=== PATIENT | male | born 1995 | race Native Hawaiian/Other Pacific Islander ===

== ENCOUNTER 2018-11-19 02:19 | Emergency (ER) | payer SELFPAY ==
[2018-11-19 03:10] VITALS: BP 140/88
--- NOTE | 2018-11-19 03:47 | XRay Report ---
CHEST 2 VIEWS INDICATION: chestpain. Generalized chest pain and shortness of breath for the past 2 days COMPARISON: None FINDINGS: Support devices: None. Heart: Within normal limits. Lungs/pleura: No acute air space or interstitial disease. No pneumothorax. Additional findings: None. IMPRESSION: 1. No acute findings. Signer Name: Edwin Mast MD Signed: 11/19/2018 3:42 AM Workstation Name: [id number]
[2018-11-19] MEDS ORDERED: TYLENOL PO ONE (06:02)
[2018-11-19] MEDS ORDERED: ASPIRIN PO ONE (06:02)
--- NOTE | 2018-11-19 06:38 | Emergency Department Report ---
ED General Adult HPI - General Chief complaint: Chest Pain Stated complaint: CHEST PAIN Time Seen by Provider: 11/19/18 05:55 Source: patient Mode of arrival: Ambulatory Limitations: No Limitations - History of Present Illness Initial comments: Patient is a 22-year-old male with no past medical history, and nonsmoker of tobacco products who presents with a ED with complaint of acute onset persistent left-sided chest wall pain for the last 2 hours after slipping and laying in the prone position overnight. Patient states that her pain is per sistent and worse with inhalation or palpation of the chest wall. Patient denies diaphoresis, dizziness, nausea, vomiting, shortness of breath, headache, abdominal pain, numbness and tingling of left arm or neck pain and vision changes or palpitation. MD Complaint: CHEST WALL PAIN -: Sudden, hour(s) (2) Location: chest Radiation: non-radiation Severity scale (0 -10): 4 Quality: aching, dull Consistency: constant Improves with: none Worsens with: other (INHALATION) Associated Symptoms: denies other symptoms, chest pain. denies: confusion, coug h, diaphoresis, fever/chills, headaches, loss of appetite, malaise, nausea/vomiting, rash, shortness of breath, syncope, weakness Treatments Prior to Arrival: none - Related Data Previous Rx's Medication Instructions Recorded Last Taken Type Acetaminophen/Codeine [Tylenol 1 tab PO Q6H PRN #12 tab 03/25/18 Unknown Rx /Codeine # 3 tab] Clindamycin [Clindamycin CAP] 300 mg PO Q6H #28 capsule 03/25/18 Unknown Rx Ibuprofen [Motrin] 600 mg PO Q8H PRN #20 tablet 03/25/18 Unknown Rx metroNIDAZOLE [Flagyl] 500 mg PO Q12HR #14 tab 03/25/18 Unknown Rx Allergies Allergy/AdvReac Type Severity Reaction Status Date / Time No Known Allergies Allergy Verified 03/27/18 13:47 ED Review of Systems ROS: Stated complaint: CHEST PAIN Other details as noted in HPI Constitutional: denies: chills, fever Eyes: denies: eye pain, eye discharge, vision change ENT: denies: ear pain, throat pain Respiratory: denies: cough, shortness of breath, wheezing Cardiovascular: chest pain (LEFT-SIDED). denies: palpitations Endocrine: no symptoms reported Gastrointestinal: denies: abdominal pain, nausea, diarrhea Genitourinary: denies: urgency, dysuria Musculoskeletal: arthralgia. denies: back pain, joint swelling Skin: denies: rash, lesions Neurological: denies: headache, weakness, paresthesias Psychiatric: denies: anxiety, depression Hematological/Lymphatic: denies: easy bleeding, easy bruising ED Past Medical Hx - Past Medical History Previous Medical History?: Yes Hx Asthma: Yes Additional medical history: Obesity - Surgical History Past Surgical History?: No - Social History Smoking Status: Never Smoker Substance Use Type: None - Medications Home Medications: Home Medications Medication Instructions Recorded Confirmed Last Taken Type Acetaminophen/Codeine [Tylenol 1 tab PO Q6H PRN #12 tab 03/25/18 Unknown Rx /Codeine # 3 tab] Clindamycin [Clindamycin CAP] 300 mg PO Q6H #28 capsule 03/25/18 Unknown Rx Ibuprofen [Motrin] 600 mg PO Q8H PRN #20 tablet 03/25/18 Unknown Rx metroNIDAZOLE [Flagyl] 500 mg PO Q12HR #14 tab 03/25/18 Unknown Rx ED Physical Exam - General Limitations: No Limitations General appearance: alert, in no apparent distress - Head Head exam: Present: atraumatic, normocephalic - Eye Eye exam: Present: normal appearance, PERRL, EOMI Pupils: Present: normal accommodation - ENT ENT exam: Present: normal exam, normal orophraynx, mucous membranes moist, TM's normal bilaterally, normal external ear exam - Neck Neck exam: Present: normal inspection, full ROM. Absent: tenderness, lymphadenopathy - Respiratory Respiratory exam: Present: normal lung sounds bilaterally, chest wall tenderness (Palpable left chest wall pain). Absent: respiratory distress, wheezes, rales, rhonchi, accessory muscle use, decreased breath sounds, prolonged expiratory - Cardiovascular Cardiovascular Exam: Present: regular rate, normal rhythm, normal heart sounds. Absent: systolic murmur, diastolic murmur, rubs, gallop - GI/Abdominal GI/Abdominal exam: Present: soft, normal bowel sounds. Absent: tenderness, guarding, rebound, hyperactive bowel sounds, hypoactive bowel sounds, organomegaly - Rectal Rectal exam: Present: deferred - Extremities Exam Extremities exam: Present: normal inspection, full ROM, normal capillary refill - Back Exam Back exam: Present: normal inspection, full ROM. Absent: tenderness, CVA tenderness (R), CVA tenderness (L), paraspinal tenderness - Neurological Exam Neurological exam: Present: alert, oriented X3, CN II-XII intact, normal gait, reflexes normal - Psychiatric Psychiatric exam: Present: normal affect, normal mood - Skin Skin exam: Present: warm, dry, intact, normal color. Absent: rash ED Course Vital Signs 11/19/18 02:59 Temperature 98.4 F Pulse Rate 70 Respiratory 18 Rate Blood Pressure 140/88 O2 Sat by Pulse 100 Oximetry - Reevaluation(s) Reevaluation #1: 11/19/18 06:37 This is a 22-year-old male with no past medical history presented to the ED with left-sided chest wall pain after slipping on laying in a prone position. In the ED, the patient is alert and oriented 3 and is not in distress with normal vital signs. EKG shows normal sinus rhythm with a ventricular rate of 61 beats per minutes, and no ST or T wave mother to speak. Chest x-ray shows no acute pulmonary abnormalities. Patient has no risk factors for cardiac pathology. Labs were drawn including troponin. Pain medication was ordered for the patient. Patient symptoms are likely due to musculoskeletal pain or costochondritis. Patient however eloped from the ED before initiation of the lab tests. ED Medical Decision Making - EKG Data EKG shows normal: sinus rhythm Rate: normal - EKG Data Interpretation: normal EKG 11/19/18 06:39 Normal sinus rhythm with a ventricular rate of 61 bpm, no ST or T-wave abnor malities. - Radiology Data Radiology results: report reviewed, image reviewed Chest x-ray shows no acute cardiopulmonary monitors. - Medical Decision Making This is a 22-year-old male with no past medical history presented to the ED with left-sided chest wall pain after slipping on laying in a prone position. In the ED, the patient is alert and oriented 3 and is not in distress with normal vital signs. EKG shows normal sinus rhythm with a ventricular rate of 61 beats per minutes, and no ST or T wave mother to speak. Chest x-ray shows no acute pulmonary abnormalities. Patient has no risk factors for cardiac pathology. Labs were drawn including troponin. Pain medication was ordered for the patient. Patient symptoms are likely due to musculoskeletal pain or costochondritis. Patient however eloped from the ED before initiation of the lab tests. - Differential Diagnosis chest wall pain, nonspecific chest pain, costochondritis Critical care attestation.: If time is entered above; I have spent that time in minutes in the direct care of this critically ill patient, excluding procedure time. ED Disposition Clinical Impression: Acute costochondritis, Muscle strain of anterior chest wall Disposition: ELOPED Is pt being admited?: No Does the pt Need Aspirin: No Condition: Stable Instructions: Muscle Strain (ED), Costochondritis (ED) Referrals: [facility] MD HAKEEM [Primary Care Provider] - 3-5 Days Time of Disposition: 06:20 Print Language: HUNGARIAN
== END 2018-11-19 06:23 | disposition left against medical advice (07) ==
LOC: ED 02:19
DX: S29.011A Strain of muscle and tendon of front wall of thorax, initial encounter (principal); M94.0 Chondrocostal junction syndrome [Tietze]; J45.909 Unspecified asthma, uncomplicated; E66.9 Obesity, unspecified; Z68.39 Body mass index [BMI] 39.0-39.9, adult; Z79.1 Long term (current) use of non-steroidal anti-inflammatories (NSAID); Z79.899 Other long term (current) drug therapy; W01.198A Fall on same level from slipping, tripping and stumbling with subsequent striking against other object, initial encounter; Y93.89 Activity, other specified; Y92.098 Other place in other non-institutional residence as the place of occurrence of the external cause; Y99.8 Other external cause status
CPT/HCPCS: 71046; 93005; 93010; 99283